=== PATIENT | female | born 1955 | race Caucasian/White ===

== ENCOUNTER 2019-01-09 13:40 | Inpatient (IN) | payer OTHER ==
[~2019-01-09] VITALS: Ht 165.1 cm; Wt 72.5 kg
[2019-01-09] MEDS ORDERED: SODIUM CHLORIDE 0.9% 1,000 ML IVB ONE (13:49)
[2019-01-09] MEDS ORDERED: LORazepam 2MG/ML-1ML VIAL IV ONE (14:00)
[2019-01-09 14:08] LABS: Basophils # (auto) 0.1 uL; Basophils % (auto) 0.8 % (0.0-2.0); Eosinophils # (auto) 0.1 uL; Eosinophils % (auto) 1.6 % (0.0-7.0); Hematocrit 41.1 % (36.0-46.0); Hemoglobin 13.3 g/dL (12.2-16.2); Lymphocytes # (auto) 2.7 uL; Lymphocytes % (auto) 30.4 % (10.0-50.0); Mean Corpuscular Hemoglobin 30.1 pg (28.0-32.0); Mean Corpuscular Hgb Conc. 32.4 g/dL (32.0-36.0); Monocytes # (auto) 0.9 uL; Monocytes % (auto) 9.9 % (0.0-12.0); Neutrophils # (auto) 5.2 uL; Neutrophils % (auto) 57.3 % (37.0-80.0); Platelet Count (auto) 317 10^3/uL (140-450); Red Blood Cells 4.42 10^6/uL (4.0-5.20); Red Cell Distribution Width 13.4 % (11.8-14.3)
[2019-01-09 14:32] LABS: Albumin 3.9 g/dL (3.4-5.0); BUN/Creatinine Ratio 6.7; Calcium 8.4 mg/dL (8.5-10.1); Magnesium 2.2 mg/dL (1.6-2.6); Potassium 3.8 mmol/L (3.5-5.1)
[2019-01-09 14:35] LABS: Bilirubin, Total 0.4 mg/dL (0.2-1.0); Total Protein 7.4 g/dL (6.4-8.2)
[2019-01-09] MEDS ORDERED: AMIT10TA6 PO (15:09)
[2019-01-09] MEDS ORDERED: BUPR100T14 PO (15:10)
[2019-01-09] MEDS ORDERED: METO-169 PO (15:10)
[2019-01-09] MEDS ORDERED: ONDANSETRON HCL 4 MG/2 ML VIAL IV PRN (15:30)
[2019-01-09] MEDS ORDERED: LORazepam 2MG/ML-1ML VIAL IV PRN (15:30)
[2019-01-09] MEDS ORDERED: NITROGLYCERIN 0.4 MG SL TAB SL PRN (15:30)
[2019-01-09] MEDS ORDERED: ACETAMINOPHEN 650 mg PER 20 mL UD PO PRN (15:30)
[2019-01-09] MEDS ORDERED: MORPHINE SULF INJ 2 MG/ML SYRINGE 1ML IV PRN ×2 (15:30)
[2019-01-09 18:13] VITALS: BP 121/71
--- NOTE | 2019-01-09 18:44 | NUR ---
received to room 202 at 1800 from ER. a/o x 4, ambulatory. vss. pt stated she feels a bit anxious. at present eating dinner. seizure precautions in place. will continue to monitor.
[2019-01-09 22:00] VITALS: BP 121/72
[2019-01-09] MEDS: LEVETIRACETAM INJ 500 MG in D5W 5% 100 ML IV SCH (22:42)
[2019-01-10] MEDS: HYDROcodone-ACET 5/325MG TAB PO PRN ×2 (01:42→07:53)
[2019-01-10] MEDS ORDERED: PNEUMOCOCCAL VACC POLYS 25 MCG/0.5 ML VIAL IM ONE (01:45)
[2019-01-10] MEDS ORDERED: INFLUENZA QUAD 2019-2020 0.5ml SYRG IM ONE (01:45)
[2019-01-10 05:06] LABS: Basophils # (auto) 0 uL; Basophils % (auto) 0.4 % (0.0-2.0); Eosinophils # (auto) 0.1 uL; Eosinophils % (auto) 0.8 % (0.0-7.0); Hematocrit 35.8 % (36.0-46.0); Hemoglobin 11.9 g/dL (12.2-16.2); Lymphocytes # (auto) 1.7 uL; Lymphocytes % (auto) 20.5 % (10.0-50.0); Mean Corpuscular Hemoglobin 30.3 pg (28.0-32.0); Mean Corpuscular Hgb Conc. 33.1 g/dL (32.0-36.0); Mean Corpuscular Volume 91.6 fL (80.0-100.0); Monocytes # (auto) 0.7 uL; Neutrophils # (auto) 5.8 uL; Neutrophils % (auto) 69.3 % (37.0-80.0); Platelet Count (auto) 255 10^3/uL (140-450); Red Blood Cells 3.91 10^6/uL (4.0-5.20); Red Cell Distribution Width 13.1 % (11.8-14.3); White Blood Cell 8.4 10^3/uL (4.4-10.8)
[2019-01-10 05:31] LABS: Albumin 3.2 g/dL (3.4-5.0); BUN/Creatinine Ratio 9.6; Calcium 8.1 mg/dL (8.5-10.1); Potassium 3.3 mmol/L (3.5-5.1)
[2019-01-10 05:34] LABS: Bilirubin, Total 0.4 mg/dL (0.2-1.0); Total Protein 6.3 g/dL (6.4-8.2)
[2019-01-10 06:00] VITALS: BP 114/71
[2019-01-10 09:00] VITALS: BP 133/79
[2019-01-10] MEDS: LEVETIRACETAM INJ 500 MG in D5W 5% 100 ML IV SCH (10:23)
[2019-01-10 13:00] VITALS: BP 118/71
[2019-01-10 17:00] VITALS: BP 125/72
--- NOTE | 2019-01-10 17:43 | NUR ---
DISCHARGE INSTRUCTIONS GIVEN TO PT. VERBALIZED UNDERSTANDING, ALL APPROPRIATE PAPERWORK SIGNED. IV AND TELE MONITOR REMOVED. PT DISCHARGED HOME.
== END 2019-01-10 17:30 | disposition home or self-care (01) | DRG 100 ==
LOC: ER 13:50 → TELE 13:51 → TELE-CENTR 18:00
PROVIDERS: ADMIT Internal Medicine; ATTEND Internal Medicine
DX: G40.909 Epilepsy, unspecified, not intractable, without status epilepticus (principal); N17.0 Acute kidney failure with tubular necrosis; I10 Essential (primary) hypertension; M79.7 Fibromyalgia; I48.0 Paroxysmal atrial fibrillation; I25.10 Atherosclerotic heart disease of native coronary artery without angina pectoris; R29.700 NIHSS score 0; Z82.3 Family history of stroke; Z90.710 Acquired absence of both cervix and uterus; Z23 Encounter for immunization
CPT/HCPCS: 36415; 70450; 80053; 83735; 85025; 93005; 94761; 96361; 96374; 96375; G0378; J7060

== ENCOUNTER 2022-07-04 20:18 | Emergency (ER) | payer OTHER ==
[~2022-07-04] VITALS: Ht 157.5 cm; Wt 61.0 kg
[~2022-07-04 20:18] MED LIST: AMIT1TAB34 PO; BUPR-160 PO; METO-289 PO
[2022-07-04] MEDS ORDERED: HYDROmorphone HCL 2 MG/ML VL/or syr IM ONE (20:30)
[2022-07-04] MEDS ORDERED: PROPOFOL 10 MG/ML 20 ML IV ONE (21:30)
[2022-07-04] MEDS ORDERED: KETAMINE 50mg/ML 10ml Vial (500mg/10ml) IV ONE (21:30)
[2022-07-04] MEDS ORDERED: HYDROmorphone HCL 2 MG/ML VL/or syr IV ONE (21:30)
[2022-07-04] MEDS ORDERED: KETOROLAC TROMETH 30 MG/ML 1ML VIAL IV ONE (22:30)
[2022-07-05] VITALS: BP 105/65
== END 2022-07-04 23:32 | disposition home or self-care (01) ==
LOC: ER 20:18
DX: S43.005A Unspecified dislocation of left shoulder joint, initial encounter (principal); S42.292A Other displaced fracture of upper end of left humerus, initial encounter for closed fracture; I10 Essential (primary) hypertension; I48.91 Unspecified atrial fibrillation; Z90.710 Acquired absence of both cervix and uterus; Z79.899 Other long term (current) drug therapy; W01.0XXA Fall on same level from slipping, tripping and stumbling without subsequent striking against object, initial encounter; Y93.89 Activity, other specified; Y92.89 Other specified places as the place of occurrence of the external cause; Y99.8 Other external cause status
CPT/HCPCS: 23650; 73020; 73030; 96372; 96374; 96375; 99152; 99285; J1170; J1885; J2704